=== PATIENT | male | born 1960 | race Caucasian/White ===

== ENCOUNTER 2016-06-14 15:45 | Emergency (ER) | payer OTHER ==
[~2016-06-14 15:45] MED LIST: ACET500CAP PO; ADVIL PO; ASA5GR PO; ASAB PO; ASABAYER PO; ASPIRIN OTC PO; BACDS PO; BRILINTA PO; CEFAZ1 IV; CENTRUM TAB1 TAB PO; IMDUR60 PO; IMITREX100 MG PO; K500 PO; LIPITOR40 PO; LIPITOR80 MG PO; LOP50 PO; METOPROLOL PO; MULTIVIT/MIN PO; NITROQUICK0.4 MG SL; NITROSTAT0.4 MG SL; NORCO1 TA1 PO; NORCO1 TA2 PO; PCET PO; PLAVIX PO; PRIN20 PO; RAN500 PO; THERGRANM PO; TOPXL50 PO; ULTRAM50 PO; VICOPROFEN 7.5/1 TAB PO; ZESTORETIC PO; ZESTRIL20 MG PO
[2016-06-14 16:23] LABS: BASOPHILS 0.2 %; BASOPHILS ABSOLUTE 0.02 10/3/uL (0.0-0.16); EOSINOPHILS 0.5 %; EOSINOPHILS ABSOLUTE 0.05 10/3/uL (0.0-0.53); ER CBC TAT 0 Hrs 07 Mins; IMMATURE GRANULOCYTES 0.3 %; IMMATURE GRANULOCYTES ABSOLUTE 0.03 10/3/uL (0.0-0.11); LYMPHOCYTES 15.8 %; LYMPHOCYTES ABSOLUTE 1.47 10/3/uL (0.67-4.30); MEAN CORPUS HGB CONC 33.6 g/dL (32.0-36.0); MEAN CORPUSCULAR HEMOGLOB 27.9 pg (26.0-34.0); MEAN PLATELET VOLUME 9.9 fL (9.2-13.0); MONOCYTES 4.2 %; MONOCYTES ABSOLUTE 0.39 10/3/uL (0.21-1.20); NEUTROPHILS ABSOLUTE 7.37 10/3/uL (2.02-8.40); PLATELET COUNT 343 10/3/uL (150-400); RBC DISTRIBUTION WIDTH 15.1 % (12.0-16.0); WHITE BLOOD CELLS 9.3 10/3/uL (4.5-10.5)
[2016-06-14 16:25] LABS: HEMATOCRIT 47.9 % (40.0-51.0); HEMOGLOBIN 16.1 g/dL (13.6-17.8); MANUAL DIFF NO %; MEAN CORPUSCULAR VOLUME 82.9 fL (80-100); RED CELL COUNT 5.78 10/6/uL (4.7-6.1)
[2016-06-14 16:36] LABS: INTERNATIONAL NORMAL RATI 1.1 UNITS (-); PARTIAL THROMBO TIME 27.4 SEC (22.5-37.2); PROTIME (NOT ORD) 13.9 SEC (12.0-14.5)
[2016-06-14 16:39] LABS: BUN (BLOOD UREA NITROGEN) 13 MG/DL (6-23); CALCIUM, SERUM 9.7 MG/DL (8.5-10.4); CHEST PAIN PROFILE TAT 0 Hrs 23 Mins; CHLORIDE, SERUM 105 MMOL/L (96-112); CO2 (CARBON DIOXIDE) 20 MMOL/L (24-34); CREATININE 1.48 MG/DL (0.70-1.30); GFR AFRICAN AMERICAN 60 ML/MIN (>=60); GFR NON AFRICAN AMERICAN 52 ML/MIN (>=60); GLUCOSE, SERUM 116 MG/DL (60-99); POTASSIUM, SERUM 3.8 MMOL/L (3.5-5.3); SODIUM, SERUM 140 MMOL/L (135-148); TROPONIN I <0.02 NG/ML (<0.05)
[2016-09-29] MEDS ORDERED: ULTRAM50 PO (11:02)
[2016-09-29] MEDS ORDERED: MULTIVITAMI1 PO (11:03)
[2016-09-30] MEDS ORDERED: CLEOCIN300 MG PO (10:20)
[2016-09-30] MEDS ORDERED: T3 PO (10:23)
== END 2016-06-14 18:59 | disposition home or self-care (01) ==
LOC: ER 15:45
PROVIDERS: Emergency Medicine
DX: G43.909 Migraine, unspecified, not intractable, without status migrainosus (principal); Z88.8 Allergy status to other drugs, medicaments and biological substances; Z79.82 Long term (current) use of aspirin; Z79.899 Other long term (current) drug therapy
CPT/HCPCS: 80048; 83735; 84484; 85025; 85610; 85730; 93005; 96372; 99284; J1885; J2930

== ENCOUNTER 2016-06-23 18:01 | Emergency (ER) | payer OTHER ==
[2016-06-23 18:30] LABS: BASOPHILS 0.2 %; BASOPHILS ABSOLUTE 0.02 10/3/uL (0.0-0.16); EOSINOPHILS 1.4 %; EOSINOPHILS ABSOLUTE 0.14 10/3/uL (0.0-0.53); ER CBC TAT 0 Hrs 05 Mins; HEMOGLOBIN 14.3 g/dL (13.6-17.8); IMMATURE GRANULOCYTES 0.5 %; IMMATURE GRANULOCYTES ABSOLUTE 0.05 10/3/uL (0.0-0.11); LYMPHOCYTES 18.5 %; LYMPHOCYTES ABSOLUTE 1.87 10/3/uL (0.67-4.30); MEAN CORPUS HGB CONC 33.6 g/dL (32.0-36.0); MEAN CORPUSCULAR HEMOGLOB 27.4 pg (26.0-34.0); MEAN CORPUSCULAR VOLUME 81.6 fL (80-100); MEAN PLATELET VOLUME 9.9 fL (9.2-13.0); MONOCYTES ABSOLUTE 0.61 10/3/uL (0.21-1.20); NEUTROPHILS 73.4 %; PLATELET COUNT 348 10/3/uL (150-400); RED CELL COUNT 5.21 10/6/uL (4.7-6.1); WHITE BLOOD CELLS 10.1 10/3/uL (4.5-10.5)
[2016-06-23 18:35] LABS: HEMATOCRIT 42.5 % (40.0-51.0); MANUAL DIFF NO %
[2016-06-23 18:38] LABS: PARTIAL THROMBO TIME 25.9 SEC (22.5-37.2); PROTIME (NOT ORD) 12.8 SEC (12.0-14.5)
[2016-06-23 18:47] LABS: CALCIUM, SERUM 8.9 MG/DL (8.5-10.4); CHEST PAIN PROFILE TAT 0 Hrs 14 Mins; CHLORIDE, SERUM 105 MMOL/L (96-112); CO2 (CARBON DIOXIDE) 23 MMOL/L (24-34); CREATININE 1.08 MG/DL (0.70-1.30); GFR AFRICAN AMERICAN 88 ML/MIN (>=60); GFR NON AFRICAN AMERICAN 76 ML/MIN (>=60); POTASSIUM, SERUM 4.1 MMOL/L (3.5-5.3); SODIUM, SERUM 138 MMOL/L (135-148); TROPONIN I <0.02 NG/ML (<0.05)
[2016-06-23 18:49] LABS: BUN (BLOOD UREA NITROGEN) 17 MG/DL (6-23); GLUCOSE, SERUM 91 MG/DL (60-99)
[2016-06-23 20:12] LABS: INFLUENZA A SCREEN NEGATIVE (NEGATIVE); INFLUENZA B SCREEN NEGATIVE (NEGATIVE)
[2016-06-23 20:16] LABS: ALBUMIN 3.3 G/DL (3.5-5.0); ALKALINE PHOSPHATASE 99 U/L (45-117); SGOT(AST) 13 U/L (5-40); SGPT(ALT) 22 U/L (5-65); TOTAL PROTEIN 7.3 G/DL (6.0-8.5)
[2016-06-23 20:17] LABS: DIRECT BILIRUBIN < 0.1 MG/DL (0.0-0.4); INDIRECT BILIRUBIN(NOT ORDER) 0.2 MG/DL (0.1-0.9); TOTAL BILIRUBIN 0.3 MG/DL (0-1.2)
[2016-06-23] MEDS ORDERED: PLAVIX PO (20:54)
[2016-06-23] MEDS ORDERED: PRIN20 PO (20:54)
[2016-06-23] MEDS ORDERED: LOP50 PO (20:54)
[2016-06-23] MEDS ORDERED: LIPITOR80 MG PO (20:54)
[2016-06-23] MEDS ORDERED: NITROQUICK0.4 MG SL (20:55)
[2016-06-23] MEDS ORDERED: ASABAYER PO (20:55)
[2016-09-29] MEDS ORDERED: ULTRAM50 PO (11:02)
[2016-09-29] MEDS ORDERED: MULTIVITAMI1 PO (11:03)
[2016-09-30] MEDS ORDERED: CLEOCIN300 MG PO (10:20)
[2016-09-30] MEDS ORDERED: T3 PO (10:23)
== END 2016-06-23 23:24 | disposition home or self-care (01) ==
LOC: ER 18:01
PROVIDERS: Emergency Medicine; Hospitalist
DX: R07.9 Chest pain, unspecified (principal); I10 Essential (primary) hypertension; Z95.1 Presence of aortocoronary bypass graft; Z95.5 Presence of coronary angioplasty implant and graft; Z88.8 Allergy status to other drugs, medicaments and biological substances; Z79.82 Long term (current) use of aspirin
CPT/HCPCS: 71020; 71275; 80048; 80076; 83690; 83735; 84484; 85025; 85610; 85730; 87040; 87804; 93005; 96374; 96375; 99285; A9270-GY; J2405; Q9967

== ENCOUNTER 2016-07-18 18:30 | Emergency (ER) | payer OTHER ==
[2016-07-18 19:31] LABS: BASOPHILS 0.1 %; BASOPHILS ABSOLUTE 0.01 10/3/uL (0.0-0.16); EOSINOPHILS 0.6 %; EOSINOPHILS ABSOLUTE 0.08 10/3/uL (0.0-0.53); ER CBC TAT 0 Hrs 11 Mins; HEMATOCRIT 42.6 % (40.0-51.0); HEMOGLOBIN 14.1 g/dL (13.6-17.8); IMMATURE GRANULOCYTES 0.4 %; IMMATURE GRANULOCYTES ABSOLUTE 0.05 10/3/uL (0.0-0.11); LYMPHOCYTES 11.1 %; LYMPHOCYTES ABSOLUTE 1.53 10/3/uL (0.67-4.30); MEAN CORPUS HGB CONC 33.1 g/dL (32.0-36.0); MEAN CORPUSCULAR HEMOGLOB 27.8 pg (26.0-34.0); MEAN CORPUSCULAR VOLUME 83.9 fL (80-100); MEAN PLATELET VOLUME 9.9 fL (9.2-13.0); MONOCYTES 6.4 %; MONOCYTES ABSOLUTE 0.88 10/3/uL (0.21-1.20); NEUTROPHILS 81.4 %; NEUTROPHILS ABSOLUTE 11.19 10/3/uL (2.02-8.40); PLATELET COUNT 315 10/3/uL (150-400); RBC DISTRIBUTION WIDTH 14.9 % (12.0-16.0); RED CELL COUNT 5.08 10/6/uL (4.7-6.1); WHITE BLOOD CELLS 13.7 10/3/uL (4.5-10.5)
[2016-07-18 19:32] LABS: MANUAL DIFF NO %
[2016-07-18 19:43] LABS: A/G RATIO 0.9 (0.7-1.9); ALBUMIN 3.5 G/DL (3.5-5.0); ALKALINE PHOSPHATASE 109 U/L (45-117); BUN (BLOOD UREA NITROGEN) 18 MG/DL (6-23); CALCIUM, SERUM 9.3 MG/DL (8.5-10.4); CHLORIDE, SERUM 107 MMOL/L (96-112); CO2 (CARBON DIOXIDE) 26 MMOL/L (24-34); CREATININE 1.24 MG/DL (0.70-1.30); GFR AFRICAN AMERICAN 74 ML/MIN (>=60); GFR NON AFRICAN AMERICAN 64 ML/MIN (>=60); SGOT(AST) 17 U/L (5-40); SGPT(ALT) 25 U/L (5-65); SODIUM, SERUM 139 MMOL/L (135-148); TOTAL BILIRUBIN 0.2 MG/DL (0-1.2); TOTAL PROTEIN 7.5 G/DL (6.0-8.5)
[2016-07-18 19:45] LABS: GLUCOSE, SERUM 65 MG/DL (60-99)
[2016-07-18 19:50] LABS: LACTATE 1.7 MMOL/L (0.3-2.4)
[2016-07-18 20:02] LABS: INTERNATIONAL NORMAL RATI 0.9 UNITS (-); PARTIAL THROMBO TIME 26.4 SEC (22.5-37.2); PROTIME (NOT ORD) 12.5 SEC (12.0-14.5)
[2016-07-18 20:31] LABS: PROCALCITONIN 0.25 ng/mL (<0.5)
[2016-07-18 21:38] LABS: ASCORBIC ACID (UR NOT ORDER) NEG (NEG); BILIRUBIN, URINE NEGATIVE (NEG); ER URINALYSIS TAT 0 Hrs 13 Mins; KETONE, URINE NEGATIVE (NEG); LEUKOCYTE ESTERASE(NOT OR NEG (NEG); NITRITE (URINE) NEG (NEG); WBC (NOT ORDERED) (RFLEX) < 1 (0-5)
[2016-09-29] MEDS ORDERED: ULTRAM50 PO (11:02)
[2016-09-29] MEDS ORDERED: MULTIVITAMI1 PO (11:03)
[2016-09-30] MEDS ORDERED: CLEOCIN300 MG PO (10:20)
[2016-09-30] MEDS ORDERED: T3 PO (10:23)
== END 2016-07-19 01:41 | disposition home or self-care (01) ==
LOC: ER 18:30
PROVIDERS: Nurse Practitioner
DX: L08.9 Local infection of the skin and subcutaneous tissue, unspecified (principal); D72.829 Elevated white blood cell count, unspecified; I10 Essential (primary) hypertension; I25.10 Atherosclerotic heart disease of native coronary artery without angina pectoris; I73.9 Peripheral vascular disease, unspecified; E78.5 Hyperlipidemia, unspecified; Z88.8 Allergy status to other drugs, medicaments and biological substances; Z79.82 Long term (current) use of aspirin; Z79.899 Other long term (current) drug therapy
CPT/HCPCS: 71010; 74177; 80053; 81001; 83605; 84145; 85025; 85610; 85730; 87040; 93005; 96374; 96375; 96376; 99285; A9270-GY; J1885; J2405

== ENCOUNTER 2016-07-25 23:55 | Emergency (ER) | payer OTHER ==
[2016-09-29] MEDS ORDERED: ULTRAM50 PO (11:02)
[2016-09-29] MEDS ORDERED: MULTIVITAMI1 PO (11:03)
[2016-09-30] MEDS ORDERED: CLEOCIN300 MG PO (10:20)
[2016-09-30] MEDS ORDERED: T3 PO (10:23)
== END 2016-07-26 00:21 | disposition home or self-care (01) ==
LOC: ER 23:55
DX: F41.9 Anxiety disorder, unspecified (principal); F15.93 Other stimulant use, unspecified with withdrawal; I10 Essential (primary) hypertension; E78.5 Hyperlipidemia, unspecified; Z95.1 Presence of aortocoronary bypass graft; I25.10 Atherosclerotic heart disease of native coronary artery without angina pectoris; Z88.6 Allergy status to analgesic agent; Z88.8 Allergy status to other drugs, medicaments and biological substances; Z79.82 Long term (current) use of aspirin; Z79.899 Other long term (current) drug therapy
CPT/HCPCS: 99283

== ENCOUNTER 2016-08-04 20:00 | Observation (INO) | payer OTHER ==
--- NOTE | ~2016-08-04 | PRECARD ---
H&P PRE [facility] [address] [place]. [address] NAME: SHAVON HERNÁNDEZ JR : 58 STATUS : ADM Andrews PAT#: [id number] AGE: 56 ADM/REG DATE : 08/04/16 MR#: [id number] REPORT SERV DATE: 08/05/16 DICTATED BY: RAY MOY DATE: 08/05/16 REPORT STATUS : Draft TRANSCRIBED BY: MODJose M DATE: 08/05/16 DATE OF ADMISSION: 08/04/2016 HISTORY OF PRESENT ILLNESS: The patient is a 56-year-old white male who is status post coronary artery bypass surgery by Dr. Masterson in 2011. The patient presents with a history of new-onset substernal chest discomfort beginning yesterday around noon. He had a prolonged episode around 4 o'clock yesterday afternoon for which he took multiple doses of sublingual nitroglycerin without relief. He presented to the [facility] Emergency Room where EKG showed no acute changes and troponin was negative. PAST MEDICAL HISTORY: Remarkable for coronary artery disease with prior bypass surgery and essential hypertension. ALLERGIES: NO KNOWN ALLERGIES. SOCIAL HISTORY: The patient does not smoke. FAMILY HISTORY: Positive for coronary disease. REVIEW OF SYSTEMS: The patient denies cough, wheeze, sputum production, vomiting, diarrhea, or dysuria. PHYSICAL EXAMINATION: VITAL SIGNS: Blood pressure is 136/89, heart rate is 85 and regular, and respirations 18 and nonlabored. GENERAL: The patient appears to be in no acute distress. ENT: Exam is unremarkable. NECK: Shows no jugular venous distention with good carotid upstroke. CHEST: Clear. CARDIOVASCULAR: The PMI is not displaced. S1 is normal. S2 is narrowly split. No gallop is present. ABDOMEN: Soft and nontender with normal bowel sounds. EXTREMITIES: Show no cyanosis, clubbing, or edema. SKIN: Warm and dry with no pallor or icterus. NEUROPSYCHIATRIC: The patient is oriented x3 with appropriate affect. LABORATORY DATA: Potassium is 4.0, BUN is 10, creatinine is 1.15. Troponin is 0.0 today. IMPRESSION: 1. Recurrent angina versus noncardiac chest pain, status post remote bypass surgery (the patient had a cardiac catheterization done a year ago that did not show any lesions needing intervention). 2. Essential hypertension. 3. Hyperlipidemia. PLAN: If repeat troponin is negative, we will plan on a nuclear perfusion scan as an H&P PRE [address] [place] [id number] NAME: SHAVON HERNÁNDEZ JR : 58 STATUS : ADM Andrews PAT#: [id number] AGE: 56 ADM/REG DATE : 08/04/16 MR#: [id number] REPORT SERV DATE: 08/05/16 DICTATED BY: RAY MOY DATE: 08/05/16 REPORT STATUS : Draft TRANSCRIBED BY: JAIR DATE: 08/05/16 outpatient (per the patient's request). TOBY/JAIR Ray Moy M.D., Yonatan / [id number] CC: Ray Moy M.D., Yonatan
[2016-08-04 19:34] LABS: BASOPHILS 0.4 %; BASOPHILS ABSOLUTE 0.03 10/3/uL (0.0-0.16); EOSINOPHILS 0.2 %; EOSINOPHILS ABSOLUTE 0.02 10/3/uL (0.0-0.53); ER CBC TAT 0 Hrs 09 Mins; HEMATOCRIT 43.4 % (40.0-51.0); HEMOGLOBIN 14.6 g/dL (13.6-17.8); IMMATURE GRANULOCYTES 0.2 %; IMMATURE GRANULOCYTES ABSOLUTE 0.02 10/3/uL (0.0-0.11); LYMPHOCYTES ABSOLUTE 1.43 10/3/uL (0.67-4.30); MEAN CORPUS HGB CONC 33.6 g/dL (32.0-36.0); MEAN CORPUSCULAR HEMOGLOB 27.4 pg (26.0-34.0); MEAN CORPUSCULAR VOLUME 81.6 fL (80-100); MEAN PLATELET VOLUME 9.3 fL (9.2-13.0); MONOCYTES 7.3 %; MONOCYTES ABSOLUTE 0.61 10/3/uL (0.21-1.20); NEUTROPHILS 74.9 %; NEUTROPHILS ABSOLUTE 6.28 10/3/uL (2.02-8.40); RBC DISTRIBUTION WIDTH 14.6 % (12.0-16.0); RED CELL COUNT 5.32 10/6/uL (4.7-6.1); WHITE BLOOD CELLS 8.4 10/3/uL (4.5-10.5)
[2016-08-04 19:36] LABS: MANUAL DIFF NO %; PLATELET COUNT 416 10/3/uL (150-400)
[2016-08-04 19:40] LABS: INTERNATIONAL NORMAL RATI 1.1 UNITS (-); PARTIAL THROMBO TIME 28.8 SEC (22.5-37.2); PROTIME (NOT ORD) 13.6 SEC (12.0-14.5)
[2016-08-04 19:50] LABS: CALCIUM, SERUM 9.5 MG/DL (8.5-10.4); CHEST PAIN PROFILE TAT 0 Hrs 25 Mins; CHLORIDE, SERUM 109 MMOL/L (96-112); CO2 (CARBON DIOXIDE) 24 MMOL/L (24-34); CREATININE 1.15 MG/DL (0.70-1.30); GFR AFRICAN AMERICAN 81 ML/MIN (>=60); GFR NON AFRICAN AMERICAN 70 ML/MIN (>=60); SODIUM, SERUM 140 MMOL/L (135-148); TROPONIN I <0.02 NG/ML (<0.05)
[2016-08-04 19:54] LABS: BUN (BLOOD UREA NITROGEN) 10 MG/DL (6-23); GLUCOSE, SERUM 94 MG/DL (60-99)
[2016-08-05 02:04] LABS: ASCORBIC ACID (UR NOT ORDER) NEG (NEG); BILIRUBIN, URINE NEGATIVE (NEG); KETONE, URINE NEGATIVE (NEG); LEUKOCYTE ESTERASE(NOT OR NEG (NEG); WBC (NOT ORDERED) (RFLEX) 1 (0-5)
[2016-08-05 02:47] LABS: BASOPHILS 0.4 %; BASOPHILS ABSOLUTE 0.03 10/3/uL (0.0-0.16); EOSINOPHILS 0.6 %; EOSINOPHILS ABSOLUTE 0.04 10/3/uL (0.0-0.53); HEMATOCRIT 40.2 % (40.0-51.0); HEMOGLOBIN 13.3 g/dL (13.6-17.8); IMMATURE GRANULOCYTES 0.1 %; IMMATURE GRANULOCYTES ABSOLUTE 0.01 10/3/uL (0.0-0.11); LYMPHOCYTES 23.5 %; LYMPHOCYTES ABSOLUTE 1.61 10/3/uL (0.67-4.30); MANUAL DIFF NO %; MEAN CORPUS HGB CONC 33.1 g/dL (32.0-36.0); MEAN CORPUSCULAR HEMOGLOB 27.3 pg (26.0-34.0); MEAN CORPUSCULAR VOLUME 82.5 fL (80-100); MONOCYTES 8.9 %; MONOCYTES ABSOLUTE 0.61 10/3/uL (0.21-1.20); NEUTROPHILS 66.5 %; NEUTROPHILS ABSOLUTE 4.55 10/3/uL (2.02-8.40); PLATELET COUNT 389 10/3/uL (150-400); RBC DISTRIBUTION WIDTH 14.7 % (12.0-16.0); RED CELL COUNT 4.87 10/6/uL (4.7-6.1); WHITE BLOOD CELLS 6.9 10/3/uL (4.5-10.5)
[2016-08-05 03:06] LABS: CHOL/HDL RATIO(NOT ORDER) 4.4 (0-5); HDL CHOLESTEROL 44 MG/DL (> 39); LDL CHOLESTEROL 126 MG/DL (< 130); NON-HDL CHOLESTEROL 151 MG/DL (< 160); SGPT(ALT) 18 U/L (5-65); TRIGLYCERIDE 125 MG/DL (< 150); TROPONIN I <0.02 NG/ML (<0.05)
[2016-08-05 03:08] LABS: CHOLESTEROL 195 MG/DL (< 200)
[2016-08-05 12:27] LABS: TROPONIN I <0.02 NG/ML (<0.05)
[2016-08-05 12:28] LABS: CK-MB 1.4 NG/ML; CPK 61 U/L (0-200)
[2016-09-29] MEDS ORDERED: ULTRAM50 PO (11:02)
[2016-09-29] MEDS ORDERED: MULTIVITAMI1 PO (11:03)
[2016-09-30] MEDS ORDERED: CLEOCIN300 MG PO (10:20)
[2016-09-30] MEDS ORDERED: T3 PO (10:23)
== END 2016-08-05 13:47 | disposition home or self-care (01) ==
LOC: ER 20:00 → CDU1 20:38 → CDU2 21:40
PROVIDERS: Emergency Medicine; Internal Medicine Interventional Cardiology
DX: I24.9 Acute ischemic heart disease, unspecified (principal); I10 Essential (primary) hypertension; E78.5 Hyperlipidemia, unspecified; I25.10 Atherosclerotic heart disease of native coronary artery without angina pectoris; Z95.5 Presence of coronary angioplasty implant and graft
CPT/HCPCS: 71010; 80048; 80061; 81001; 82550; 82553; 83735; 83880; 84460; 84484; 85025; 85610; 85730; 93005; 96372; 96374; 96375; 96376; 99285; A9270-GY; G0378; J1170; J2405

== ENCOUNTER 2016-08-15 22:00 | Emergency (ER) | payer OTHER ==
[2016-08-15 22:38] LABS: BASOPHILS 0.3 %; BASOPHILS ABSOLUTE 0.02 10/3/uL (0.0-0.16); EOSINOPHILS ABSOLUTE 0.07 10/3/uL (0.0-0.53); HEMATOCRIT 42.7 % (40.0-51.0); HEMOGLOBIN 14.3 g/dL (13.6-17.8); IMMATURE GRANULOCYTES 0.1 %; IMMATURE GRANULOCYTES ABSOLUTE 0.01 10/3/uL (0.0-0.11); LYMPHOCYTES 27.9 %; LYMPHOCYTES ABSOLUTE 1.88 10/3/uL (0.67-4.30); MEAN CORPUS HGB CONC 33.5 g/dL (32.0-36.0); MEAN CORPUSCULAR HEMOGLOB 27.2 pg (26.0-34.0); MEAN CORPUSCULAR VOLUME 81.2 fL (80-100); MEAN PLATELET VOLUME 9.9 fL (9.2-13.0); MONOCYTES 7.7 %; MONOCYTES ABSOLUTE 0.52 10/3/uL (0.21-1.20); NEUTROPHILS ABSOLUTE 4.25 10/3/uL (2.02-8.40); PLATELET COUNT 327 10/3/uL (150-400); RBC DISTRIBUTION WIDTH 14.4 % (12.0-16.0); RED CELL COUNT 5.26 10/6/uL (4.7-6.1); WHITE BLOOD CELLS 6.8 10/3/uL (4.5-10.5)
[2016-08-15 22:39] LABS: MANUAL DIFF NO %
[2016-08-15 22:51] LABS: INTERNATIONAL NORMAL RATI 1.1 UNITS (-); PARTIAL THROMBO TIME 26.3 SEC (22.5-37.2); PROTIME (NOT ORD) 13.7 SEC (12.0-14.5)
[2016-08-15 22:57] LABS: BUN (BLOOD UREA NITROGEN) 16 MG/DL (6-23); CALCIUM, SERUM 9.7 MG/DL (8.5-10.4); CHEST PAIN PROFILE TAT 0 Hrs 25 Mins; CHLORIDE, SERUM 107 MMOL/L (96-112); CO2 (CARBON DIOXIDE) 25 MMOL/L (24-34); CREATININE 1.38 MG/DL (0.70-1.30); GFR AFRICAN AMERICAN 65 ML/MIN (>=60); GFR NON AFRICAN AMERICAN 56 ML/MIN (>=60); GLUCOSE, SERUM 89 MG/DL (60-99); POTASSIUM, SERUM 3.9 MMOL/L (3.5-5.3); SODIUM, SERUM 140 MMOL/L (135-148); TROPONIN I <0.02 NG/ML (<0.05)
[2016-09-29] MEDS ORDERED: ULTRAM50 PO (11:02)
[2016-09-29] MEDS ORDERED: MULTIVITAMI1 PO (11:03)
[2016-09-30] MEDS ORDERED: CLEOCIN300 MG PO (10:20)
[2016-09-30] MEDS ORDERED: T3 PO (10:23)
== END 2016-08-16 02:32 | disposition home or self-care (01) ==
LOC: ER 22:00
PROVIDERS: Emergency Medicine
DX: G43.909 Migraine, unspecified, not intractable, without status migrainosus (principal); N17.9 Acute kidney failure, unspecified; I10 Essential (primary) hypertension; I25.10 Atherosclerotic heart disease of native coronary artery without angina pectoris; Z95.1 Presence of aortocoronary bypass graft; Z88.6 Allergy status to analgesic agent; Z88.8 Allergy status to other drugs, medicaments and biological substances; Z79.82 Long term (current) use of aspirin; Z79.899 Other long term (current) drug therapy
CPT/HCPCS: 71020; 80048; 81001; 83735; 84484; 85025; 85610; 85730; 93005; 96372; 99284; J1885